=== PATIENT | female | born 1960 | race Two or more races ===

== ENCOUNTER 2018-02-01 08:15 | Outpatient (CLI) | payer OTHER | END 2018-02-01 13:17 | disposition home or self-care (01) | LOC: SONOGRAMA 08:15 | DX: K76.0 Fatty (change of) liver, not elsewhere classified (principal) ==

== ENCOUNTER 2018-02-06 09:20 | Outpatient (CLI) | payer OTHER | END 2018-02-06 09:32 | disposition home or self-care (01) | LOC: MAMO-SONO 09:20 | DX: N60.11 Diffuse cystic mastopathy of right breast (principal); Z12.31 Encounter for screening mammogram for malignant neoplasm of breast ==

== ENCOUNTER 2018-02-18 09:04 | Outpatient (CLI) | payer OTHER | END 2018-02-18 09:47 | disposition home or self-care (01) | LOC: TOM 09:04 | DX: N28.1 Cyst of kidney, acquired (principal) ==

== ENCOUNTER 2020-07-22 07:21 | Outpatient (CLI) | payer OTHER | END 2020-07-22 07:30 | disposition home or self-care (01) | LOC: SONOGRAMA 07:21 | PROVIDERS: ATTEND Family Medicine | DX: K30 Functional dyspepsia (principal) ==

== ENCOUNTER 2020-07-29 08:32 | Outpatient (CLI) | payer OTHER | END 2020-07-29 08:48 | disposition home or self-care (01) | LOC: TOM 08:32 | PROVIDERS: ATTEND Family Medicine | DX: D41.01 Neoplasm of uncertain behavior of right kidney (principal); R31.29 Other microscopic hematuria ==

== ENCOUNTER → 2021-03-25 | Outpatient (CLI) | payer OTHER | END | disposition home or self-care (01) | LOC: MAMO-SONO 09:22 | PROVIDERS: ATTEND Obstetrics & Gynecology | DX: N60.11 Diffuse cystic mastopathy of right breast (principal) ==

== ENCOUNTER 2021-08-25 15:00 | Outpatient (CLI) | payer OTHER | END 2021-08-25 15:15 | disposition home or self-care (01) | LOC: PPH VACUNA 15:00 | PROVIDERS: ATTEND Emergency Medicine Pediatric Emergency Medicine | DX: Z23 Encounter for immunization (principal) ==

== ENCOUNTER 2022-02-01 08:37 | Outpatient (CLI) | payer OTHER | END 2022-02-01 08:49 | disposition home or self-care (01) | LOC: RAD 08:37 | PROVIDERS: ATTEND Family Medicine | DX: M54.16 Radiculopathy, lumbar region (principal) ==

== ENCOUNTER 2024-07-14 14:49 | Emergency (ER) | payer OTHER ==
[~2024-07-14] VITALS: Ht 157.5 cm; Wt 63.5 kg
[2024-07-14] MEDS ORDERED: HYDRODIURIL12.5 MG PO (15:38)
[2024-07-14] MEDS ORDERED: ATACAND4 MG PO (15:38)
[2024-07-14] MEDS ORDERED: LIPITOR20 MG PO (15:38)
[2024-07-14] MEDS ORDERED: TETANUS & DIPHTHERIA TOX,ADULT 0.5 ML VIAL IM STA (17:21)
== END 2024-07-14 18:16 | disposition home or self-care (01) ==
LOC: ER 14:51
DX: S01.81XA Laceration without foreign body of other part of head, initial encounter (principal); W19.XXXA Unspecified fall, initial encounter; Y93.89 Activity, other specified; Y92.89 Other specified places as the place of occurrence of the external cause; Y99.8 Other external cause status

== ENCOUNTER 2024-12-22 13:10 | Outpatient (CLI) | payer OTHER ==
[~2024-12-22 13:10] MED LIST: ATACAND4 MG PO; HYDRODIURIL12.5 MG PO; LIPITOR20 MG PO
== END 2024-12-22 13:21 | disposition home or self-care (01) ==
LOC: RAD 13:10
PROVIDERS: ATTEND Obstetrics & Gynecology
DX: N60.11 Diffuse cystic mastopathy of right breast (principal); Z12.31 Encounter for screening mammogram for malignant neoplasm of breast; M47.26 Other spondylosis with radiculopathy, lumbar region